=== PATIENT | female | born 1975 | race Caucasian/White ===

== ENCOUNTER 2019-02-21 09:59 | Emergency (ER) | payer BC ==
[2019-02-21 10:22] VITALS: BP 148/95; PULSE 95; TEMP 98; BMI 28.3
[2019-02-21] MEDS ORDERED: LIDOCAINE HCL 1%, 10 MG/ML (50 mL VIAL) SQ ONE (10:22)
[2019-02-21] MEDS ORDERED: DIPHTH,PERTUSS(ACELL),TET 0.5 ML DISP.SYRIN IM ONE ×2 (10:23→10:31)
--- NOTE | 2019-02-21 10:24 | PDOC ---
History of Present Illness - General Chief Complaint: Laceration Stated Complaint: LACERATION Time Seen by Provider: 02/21/19 10:02 - History of Present Illness Initial Comments: 02/21/19 10:24 43 y/o F hx of psoriasis and asthma, presenting to the Ed after a cut to her wrist. She was slicing a bread roll when she cut her wrist with the knife. She presented to the Ed approximately 20-30 minutes after the incident. She denies any other trauma, bite, rash, fevers, chills, crush injury or presence of foreign body in the wound. 02/21/19 11:16 Past History - Past Medical History Allergies/Adverse Reactions: Allergies Allergy/AdvReac Type Severity Reaction Status Date / Time levofloxacin [From Levaquin] Allergy Intermediate Rash Verified 02/21/19 10:10 Home Medications: Ambulatory Orders Albuterol Sulfate Inhaler - [Ventolin Hfa Inhaler -] 2 inh PO Q6H PRN 02/21/19 Review of Systems - Review of Systems Constitutional: No: Chills, Fever HEENTM: No: Eye Pain, Blurred Vision Respiratory: No: Cough, Shortness of Breath Cardiac (ROS): No: Chest Pain, Lightheadedness ABD/GI: No: Nausea, Vomiting : No: Burning, Dysuria Musculoskeletal: No: Back Pain Integumentary: Yes: Erythema (from psoriasis), Rash (psoriasis) Neurological: No: Headache, Numbness Hematologic/Lymphatic: No: Easy Bleeding, Easy Bruising *Physical Exam - Physical Exam General Appearance: Yes: Nourished, Appropriately Dressed. No: Apparent Distress HEENT: positive: EOMI, Normal Voice. negative: Scleral Icterus (R), Scleral Icterus (L) Neck: positive: Supple. negative: Tender Respiratory/Chest: positive: Lungs Clear, Normal Breath Sounds. negative: Chest Tender, Respiratory Distress, Accessory Muscle Use Cardiovascular: positive: Regular Rhythm, Regular Rate, S1, S2. negative: Edema , JVD Gastrointestinal/Abdominal: positive: Normal Bowel Sounds, Soft Musculoskeletal: positive: Normal Inspection. negative: Decreased Range of Motion Extremity: positive: Normal Capillary Refill, Normal Range of Motion, Other (2+ radial pulse in left wrist. 4cm linear, diagonal laceration on medial wrist. capillary refill 1sec, in the digits, sensation and range of motion in tact.) Integumentary: positive: Normal Color, Dry, Warm Neurologic: positive: change number operator II-XII NML intact, Fully Oriented, Alert, Normal Mood/ Affect, Normal Response, Motor Strength 5/5 Procedures - Laceration/Wound Repair Left Medial Hand Wound Length: 2.6 to 5.0 cm Wound Explored: clean, no foreign body present Wound's Depth, Shape: superficial, linear Irrigated w/ Saline: No Betadine Prep: No Anesthesia: 1% Lidocaine Amount of Anesthetic (ccs): 5 Wound Repaired With: Sutures Suture Size/Type: 5:0, nylon Number of Sutures: 10 Layer Closure: No Sterile Dressing Applied: Yes Medical Decision Making - Medical Decision Making 02/21/19 11:19 43 y/o F hx of psoriasis and asthma, presenting to the Ed after a cut to her wrist Approx 4cm laceration, linear, sharp edges, no foreign body seen Irrigated for 5mins with tap water Sutures with 5.0 nylon placed. Tdap shot given Pt discharged with instructions for at home care and suture removal in 78 days. Discharge - Discharge Information Problems reviewed: Yes Clinical Impression/Diagnosis: Laceration Condition: Good Disposition: HOME - Admission No - Follow up/Referral - Patient Discharge Instructions Patient Printed Discharge Instructions: DI for Laceration Repair, Tetanus, Diphtheria, Pertussis (Tdap) Vaccine Additional Instructions: You were seen in the ER for a cut to your wrist and sutures were used to close it, See your PCP in 7 days for the sutures to be taken out. Keep the area as dry as possible during the following days. Return to the ER if You have a fever or chills. Your laceration is red, warm, or swollen. You have red streaks on your skin coming from your wound. You have white or yellow drainage from the wound that smells bad. You have pain that gets worse, even after treatment. You start bleeding, and bleeding does not stop after holding direct pressure for 10 minutes or more. You have questions or concerns about your condition or care. - Post Discharge Activity
--- NOTE | 2019-02-21 10:27 | PDOC ---
Attending Attestation - Resident Resident Name: Gregor Johnson - ED Attending Attestation I have performed the following: I have examined & evaluated the patient, The case was reviewed & discussed with the resident, I agree w/resident's findings & plan, Exceptions are as noted - HPI HPI: 02/21/19 10:24 43 F with h/o asthma presenting to ED with laceration to L wrist. Pt states she was cutting bread with a knife when it slipped. Pt denies any other injury. Denies any numbness/tingling in her fingers. Full ROM of all digits. Pt denies any other injuries. Does not know when last tetanus shot was. - Physicial Exam PE: 02/21/19 10:25 "GENERAL: Awake, alert, and fully oriented, in no acute distress. HEAD: No signs of trauma EYES: PERRLA, EOMI, sclera anicteric, conjunctiva clear ENT: Auricles normal inspection, hearing grossly normal, nares patent, oropharynx clear without exudates. Moist mucosa NECK: Nontender, no stepoffs, Normal ROM, supple, no lymphadenopathy, JVD, or masses LUNGS: Breath sounds equal, clear to auscultation bilaterally. No wheezes, and no crackles HEART: Regular rate and rhythm, normal S1 and S2, no murmurs, rubs or gallops ABDOMEN: Soft, nontender, normoactive bowel sounds. No guarding, no rebound. No masses EXTREMITIES: Normal range of motion, no edema. No clubbing or cyanosis. No cords, erythema, or tenderness NEUROLOGICAL: Cranial nerves II through XII intact. 5/5 strength and sensation in all extremities, Normal speech, normal gait, normal cerebellar function SKIN: + 3cm laceration to volar aspect of L wrist, no tendon or muscle exposure , full ROM all digits, neurovascularly intact - Medical Decision Making 02/21/19 10:27 43 F with L wrist laceration - Irrigate - Lac repair - Tdap 02/21/19 11:02 Lac repaired Pt is well appearing, with normal vitals. Clinically stable for DC at this time. I discussed the physical exam findings, ancillary test results and final diagnoses with the patient. I answered all of the patient's questions. The patient was satisfied with the care received and felt comfortable with the discharge plan and treatment plan. The patient agrees to follow up with the primary care physician within 24-72 hours.
== END 2019-02-21 11:20 | disposition home or self-care (01) ==
LOC: FER 09:59
PROC: 3E0234Z Introduction of Serum, Toxoid and Vaccine into Muscle, Percutaneous Approach (ICD-10-PCS; principal; 2019-02-21)
PROC: 0HQGXZZ Repair Left Hand Skin, External Approach (ICD-10-PCS; 2019-02-21)
DX: S61.512A Laceration without foreign body of left wrist, initial encounter (principal); W26.0XXA Contact with knife, initial encounter; Y93.G1 Activity, food preparation and clean up; Y92.000 Kitchen of unspecified non-institutional (private) residence as the place of occurrence of the external cause; L40.9 Psoriasis, unspecified; J45.909 Unspecified asthma, uncomplicated; Z88.8 Allergy status to other drugs, medicaments and biological substances
CPT/HCPCS: 90715; 99282-25

== ENCOUNTER 2019-05-24 16:17 | Emergency (ER) | payer BC ==
[2019-05-24 16:23] VITALS: BMI 32.3
[2019-05-24] MEDS ORDERED: SODIUM CHLORIDE 0.9% 1000 ML INFUS.BAG IV ONE ×2 (16:35→18:03)
[2019-05-24] MEDS ORDERED: FAMOTIDINE 20 MG/50 ML IVPB 20 MG/50 ML MG IVPB ONE ×2 (16:35→17:04)
[2019-05-24] MEDS ORDERED: methylPREDNISolone NA SUCC 125 MG/2 ML VIAL IVPB ONE (16:35)
[2019-05-24] MEDS ORDERED: methylPREDNISolone NA SUCC 125 MG/2 ML VIAL ONE (16:39)
--- NOTE | 2019-05-24 16:39 | PDOC ---
Attending Attestation - Resident Resident Name: Bridgette Haskins - ED Attending Attestation I have performed the following: I have examined & evaluated the patient, The case was reviewed & discussed with the resident, I agree w/resident's findings & plan, Exceptions are as noted - HPI HPI: 05/24/19 16:58 43yo female presents ambulatory c/o a diffuse rash and facial swelling. Pt states hx of asthma, psoriasis, and dermatomyositis. Pt was started on plaquenil and was 10 days into the new medication when the rash started. Pt states worsening rash since . Staets rash started on chest, arms and legs, now her face and abd/trunk are all involved. States rash is itchy and now sanchez. Pt with an erythematous morbiliform confluent rash across entire body with areas of scaling and peeling. [facility] at [facility]- Dr. Harrison [phone]. - Physicial Exam PE: 05/24/19 17:01 Gen: aaox3, anxious, nervous heent: PERRL, EOMI, MMM, no oral lesions, no tongue or lip swelling, posterior pharynx without swelling, tolerating secertions/speaking in full sentences heart: +s1s2 tachy lungs: cta b/l, no wheezing, no stridor abd: soft, nt/nd +bs ext: no c/c/e skin: erythematous morbiliform confluent rash across entire body with areas of scaling and peeling on upper back and chest, swelling of soft tissue of face, no conjunctivitis, no oral involvement 05/24/19 17:02 - Medical Decision Making 05/24/19 17:03 a/p: 43yo female with adverse drug reaction to Plaquenil -concern give diffuse body involvement for dehydration -poss DRESS syndrome -will send labs, ekg -pepcid, benadryl, solumedrol, ivf -will monitor and reassess 05/24/19 17:09 pt may also have acute generalized exemthematous pustulosis call placed to patients physician-rheum 05/24/19 17:23 ua neg 05/24/19 17:48 resident discussed the case with Dr. Hussein at [facility] who accepts pt in transfer discussed transfer with the patient for eval by BURN specialist given extent of adverse drug reaction and poss agep. pt agrees to transfer and signed consent for transfer 05/24/19 17:53 Dr. Olvera from [facility] called back and agreed with the plan and will let Dr. Kavita Harrison know of the adverse drug event. Discharge - Discharge Information Problems reviewed: Yes Clinical Impression/Diagnosis: Adverse drug reaction, Drug induced rash with eosinophilia and systemic symptoms Condition: Guarded Disposition: TRANSFER ACUTE CARE/OTHER HOSP - Follow up/Referral - Patient Discharge Instructions - Post Discharge Activity Heart Score/ECG Review - ECG Intrepretation Comment:: 05/24/19 17:23 sinus tach at 102, nl axis, nl interval, no acute st/t wave findings
--- NOTE | 2019-05-24 16:59 | PDOC ---
History of Present Illness - General Chief Complaint: Allergic Reaction Stated Complaint: ALLERGIC REACTION Time Seen by Provider: 05/24/19 16:32 - History of Present Illness Initial Comments: Lisy Martin is a 43yo woman with a PMH of asthma, recently diagnosed with dermatomyositis and started on hydroxychloroquine who presents with an erythematous, itching rash since . She states that she had been taking the hydroxychloroquine for 10 days at that time when she noted an itching rash on her upper back. 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 The rash has continued to worsen since that time. She states that the rash spread from the upper back across her torso, arms, and to her legs. Ms Martin reports that this morning she did not see any rash over her abdomen, which is now present. She has been taking diphenhydramine for the rash with minimal improvement in the itching. She denies any previous severe drug reactions, known allergies, difficulty breathing, difficulty swallowing, changes in her voice, shortness of breath, wheezing, or other airway or respiratory symptoms, though she does endorse chills at home. She does note that her face appears swollen and lips feel numb "like when you get novacaine." She also notes that in addition to the itching, her skin now sanchez and hurts. Past History - Past Medical History Allergies/Adverse Reactions: Allergies Allergy/AdvReac Type Severity Reaction Status Date / Time hydroxychloroquine Allergy Intermediate Rash Verified 05/24/19 16:39 [From Plaquenil] levofloxacin [From Levaquin] Allergy Intermediate Rash Verified 05/24/19 16:18 Home Medications: Ambulatory Orders Diphenhydramine HCl [Benadryl -] 25 mg PO ONCE 05/24/19 Hydroxychloroquine So4 [Plaquenil -] 200 mg PO ASDIR 05/24/19 Montelukast Sodium [Singulair] 10 mg PO HS 05/24/19 Asthma: Yes (RECENT BRONCHITIS) COPD: No Other medical history: autoimmune d/o- dermatocystosis - Surgical History Appendectomy: Yes - Psycho Social/Smoking Cessation Hx Smoking History: Never smoked Have you smoked in the past 12 months: No Information on smoking cessation initiated: No Hx Alcohol Use: (social) Drug/Substance Use Hx: No Review of Systems - Review of Systems Comments:: General: No fevers, + chills, no weight or appetite change, + malaise HEENT: No changes in vision, no changes in hearing, no congestion, no sore throat CV: No chest pain, no palpitations, no LE edema Pulm: No SOB, no cough, no wheezing GI: No nausea or vomiting, no change in bowel habits, no melena : No frequency, no urgency, no dysuria Musc: No back pain, no joint swelling, no recent injury Skin: +Diffuse erythematous rash, see HPI. +Pruritus Endo: No excessive thirst, no heat/cold intolerance Heme: No unusual bruising or bleeding, no swollen glands Neuro: No syncope, no numbness/tingling, no focal weakness Vasc: No claudication Psych: No recent change in mood, no SI or HI *Physical Exam - Vital Signs Last Vital Signs Temp Pulse Resp BP Pulse Ox 97.8 F 112 H 20 155/89 100 05/24/19 16:17 05/24/19 16:17 05/24/19 16:17 05/24/19 16:17 05/24/19 16:17 - Physical Exam General: Uncomfortable no acute distress HEENT: Atraumatic. PERRL, EOMI, dry/cracked lips. Voice normal. Face swollen symmetrically w/ diffuse erythema. No pharyngeal, tonsillar, or uvular erythema or edema. No peeling or lesions in mouth. Cards: RRR, no murmur appreciated Pulm: Comfortable on room air, clear to auscultation bilaterally. Air movement noted bilaterally. No wheezing or crackles Abd: Soft, nontender, nondistended : Deferred Ext: Atraumatic. No LE edema. ROM intact. WWP Skin: Diffuse erythematous rash. Moribilliform with blistered appearance, 1-2mm in diameter, on extremities and abdomen. No fluid noted in apparent blisters. Over face, chest and back, uniform erythema with ecchymosis and thickened appearance. Peeling skin over upper back. Neuro: A&Ox3, CN grossly intact, normal speech, motor/sensory grossly intact and symmetric Psych: Mood appropriate to situation ED Treatment Course - LABORATORY CBC & Chemistry Diagram: 05/24/19 17:00 05/24/19 17:00 Medical Decision Making - Medical Decision Making 05/24/19 16:59 Lisy Martin is a 43yo woman with a PMH of asthma, recently diagnosed with dermatomyositis and started on hydroxychloroquine who presents with a worsening erythematous, itching rash since despite stopping her medication; the rash has spread to involve her entire back, upper and lower extremities, face, and chest, and she notes spread to her abdomen since this morning. She endorses chills but denies any airway or respiratory symptoms. She has been taking PO benadryl without relief. - Diffuse rash involving over 50% of TBSA. Does not appear to be hives. - No airway or respiratory involvement appreciated on exam - No sloughing or open blisters; does not appear to be SJS/TENS. Concerning for AGEP or DRESS syndrome - Diphenhydramine, famotidine, solu-medrol, IVF for symptoms - CBC, CMP, coags. Given severity of symptoms, will check for systemic involvement - Tachycardic but pt appears anxious about symptoms. Will reassess 05/24/19 17:11 - Vaginal exam completed. No mucosal lesions or blistering - Symptoms not improved with medications 05/24/19 17:48 - Labs reviewed. No leukocytosis but eosinophils elevated to 8% - Spoke to Dr Hussein at the [facility]. Will accept transfer - Consented for transfer by Dr Clemente Discussed with Dr Chyna Haskins PGY2 Discharge - Discharge Information Problems reviewed: Yes Clinical Impression/Diagnosis: Drug induced rash with eosinophilia and systemic symptoms Adverse drug reaction Qualifiers: Encounter type: initial encounter Qualified Code(s): T50.905A - Adverse effect of unspecified drugs, medicaments and biological substances, initial encounter Condition: Stable Disposition: TRANSFER ACUTE CARE/OTHER HOSP - Follow up/Referral - Patient Discharge Instructions - Post Discharge Activity - Transfer to Acute Care Facility Receiving Facility Name: [facility] (Dr Hussein, sanchez)
[2019-05-24 17:25] LABS: BASO % 0.1 % (0-2.0); EOS % 7.9 % (0-4.5); HEMOGLOBIN 14.3 GM/dl (10.7-15.3); LYMPH % 19.1 % (8-40); MCH 30.9 pg (25.7-33.7); MCHC 33.2 g/dl (32.0-36.0); MEAN CELL VOLUME 93.2 fl (80-96); MEAN PLT VOLUME 9.4 fl (7.5-11.1); MONO % 9.6 % (3.8-10.2); NEUT % 63.3 % (42.8-82.8); PLATELET COUNT 233 K/MM3 (134-434); RBC 4.61 M/mm3 (3.60-5.2); RDW 12.7 % (11.6-15.6); WHITE BLOOD COUNT 4.5 K/mm3 (4.0-10.8)
[2019-05-24 17:28] LABS: INR 1.02 (0.82-1.09); PROTHROMBIN TIME (PATIENT) 11.4 SEC (10.2-13.0)
[2019-05-24 17:33] LABS: ALBUMIN 3.8 g/dl (3.4-5.0); BILIRUBIN,TOTAL 0.7 mg/dl (0.2-1); CALCIUM 9.4 mg/dl (8.5-10); CREATININE 0.6 mg/dl (0.55-1.3); TOT PROT 7.2 g/dl (6.4-8.2)
[2019-05-24 18:06] VITALS: PULSE 110; TEMP 97.6
[2019-05-24 18:37] VITALS: BP 157/86
--- NOTE | 2019-05-25 09:26 | EKG ---
Test Reason : Blood Pressure : / mmHG Vent. Rate : 102 BPM Atrial Rate : 102 BPM P-R Int : 144 ms QRS Dur : 078 ms QT Int : 334 ms P-R-T Axes : 047 018 008 degrees QTc Int : 435 ms SINUS TACHYCARDIA OTHERWISE NORMAL ECG NO PREVIOUS ECGS AVAILABLE Confirmed by Kiran Anderson MD ([id number]) on 05/25/2019 9:26:33 AM Referred By: DR CHONG Confirmed By:Kiran Anderson MD
== END 2019-05-24 18:35 | disposition short-term general hospital (02) ==
LOC: FER 16:17
PROC: 3E033GC Introduction of Other Therapeutic Substance into Peripheral Vein, Percutaneous Approach (ICD-10-PCS; principal; 2019-05-24)
PROC: 3E0337Z Introduction of Electrolytic and Water Balance Substance into Peripheral Vein, Percutaneous Approach (ICD-10-PCS; 2019-05-24)
DX: L27.0 Generalized skin eruption due to drugs and medicaments taken internally (principal); Z88.8 Allergy status to other drugs, medicaments and biological substances; J45.909 Unspecified asthma, uncomplicated
CPT/HCPCS: 36415; 80053; 81003; 84703; 85025; 85610; 85730; 93005; 99285-25; J7030

== ENCOUNTER 2022-10-17 07:48 | Day surgery (SDC) | payer BC ==
[2022-10-16 14:50] VITALS: BMI 24.6
[2022-10-17] MEDS ORDERED: BUPIVACAINE HCL/PF 0.25% (2.5MG/ML) 10 ML VIAL ONE (07:57)
[2022-10-17] MEDS ORDERED: LIDOCAINE HCL 1%, 10 MG/ML (20ML VIAL) ONE (07:57)
[2022-10-17] MEDS ORDERED: MIDAZOLAM HCL 2 MG/2 ML SINGLE DOSE VIAL ONE (09:01)
[2022-10-17] MEDS ORDERED: PROPOFOL 40 ML ONE (09:01)
[2022-10-17] MEDS ORDERED: SUCCINYLCHOLINE CHLORIDE 200 MG/10 ML SYRINGE ONE (09:01)
[2022-10-17 10:44] VITALS: RESP 16; TEMP 97.7
[2022-10-17 11:03] VITALS: BP 119/84; PULSE 85
[2022-10-17] MEDS ORDERED: ONDANSETRON 4 MG/2 ML VIAL IVPUSH PRN (12:09)
[2022-10-17] MEDS ORDERED: LACTATED RINGERS SOLUTION 1,000 ML IV SCH (12:15)
== END 2022-10-17 11:00 | disposition home or self-care (01) ==
LOC: FASU 07:48
PROVIDERS: ATTEND Orthopaedic Surgery
PROC: 01N50ZZ Release Median Nerve, Open Approach (ICD-10-PCS; principal; 2022-10-17 09:30)
PROC: 0LN50ZZ Release Right Lower Arm and Wrist Tendon, Open Approach (ICD-10-PCS; 2022-10-17 09:30)
DX: G56.01 Carpal tunnel syndrome, right upper limb (principal); M65.4 Radial styloid tenosynovitis [de Quervain]
CPT/HCPCS: 81025; 94760